=== PATIENT | female | born 1985 | race Hispanic/Latino ===

== ENCOUNTER → 2018-12-13 | Outpatient (CLI) | payer OTHER ==
--- NOTE | 2018-12-13 18:19 | REP ---
PELVIC ENDOVAGINAL PROBE ULTRASOUND: 12/13/2018. No prior study. Clinical history: IUD for 2 years but pain for a month. Nonvisualization of strings. Findings: There are no prior studies. Transabdominal and endovaginal probe images show the bladder well filled measuring 12.3 x 10.5 x 7.6 cm. The uterus is anteverted and it measures 7.2 x 3.5 x 4.1 cm. Body and fundus of the uterus show an IUD within. Maximum endometrial thickness 4.5 mm seen on AV probe just lateral to the IUD. No fluid in that endometrial cavity or endocervical canal. No fluid in the cul-de-sac. The ovaries show the right 3.4 x 2 x 3 cm and with Doppler tracing showing resistive index 0.66, normal blood flow. There is a 2.8 x 2 cm simple cyst in that right ovary. No adjacent free fluid. Subcentimeter follicles are also present. The left ovary measures 2.9 x 1.8 x 1.7 cm. It shows normal blood flow on color images with Doppler tracing 0.53. There is a 1.8 x 1.4 x 1.3 cm dominant follicle on the left (cyst defined at 2.5 cm). No adjacent free fluid to that right or left ovary. Impression: 1. Uterus anteverted, not enlarged and with an IUD centrally in the body and fundus of the uterus within the endometrial cavity. 2. A 2.8 x 2 cm simple cyst right ovary, dominant follicle left ovary 1.8 cm x 1.4 cm. No free fluid. Normal blood flow to both ovaries. Electronically Signed by Anupam Bacon MD 12/13/2018 08:22 P
== END ==
LOC: M RAD 15:57
PROVIDERS: ATTEND Physician Assistant Medical
DX: R10.2 Pelvic and perineal pain (principal)